=== PATIENT | female | born 1960 | race Caucasian/White ===

== ENCOUNTER 2019-09-04 18:00 | Emergency (ER) | payer OTHER ==
[~2019-09-04] VITALS: Ht 165.1 cm; Wt 45.4 kg
[2019-09-04 18:00] VITALS: BP_SYST 137
--- NOTE | 2019-09-04 18:05 | NUR ---
Patient to ER bed 6 to gown for evaluation. Side rails up. Report given to SAMARA OLIVER.
[2019-09-04] MEDS ORDERED: NITROGLYCERIN 1 INCH (GM) OINT. TP ONE (18:19)
[2019-09-04] MEDS ORDERED: MORPHINE 4 MG/ML INJ. SYRINGE IVP ONE (18:19)
--- NOTE | 2019-09-04 18:20 | NUR ---
ER Dr. Singh at bedside examining patient.
--- NOTE | 2019-09-04 18:21 | NUR ---
Patient presents to ER C/O Chest pain and back pain. Patient A&Ox4,BIB BLS to ER, afebrile, skin pink & warm, pain 6/10, denies N/V/D. Patient placed on pulse-ox and monitoring and evaluation advisor upon arriva, EKG completed upon arrivall. Patient states chest pain X1 week and back pain X6 weeks PT states she has Hx of adult onset scoliosis.
[2019-09-04 18:43] LABS: BASOPHILS # (AUTO) 0.1 K/uL (0.0-0.2); BASOPHILS % (AUTO) 0.7 % (0.0-2.0); EOSINOPHILS % (AUTO) 0.4 % (0.0-4.0); HEMATOCRIT 37.1 % (36-48); HEMOGLOBIN 12.2 g/dL (12.0-16.0); LYMPHOCYTES % (AUTO) 13.7 % (20.5-51.5); MEAN CORPUSCULAR HEMOGLOBIN 30 pg (27-31); MEAN CORPUSCULAR HGB CONC 33 % (32-36); MEAN CORPUSCULAR VOLUME 90 fL (79.0-98.0); MONOCYTES # (AUTO) 0.7 K/uL (0.0-1.0); MONOCYTES % (AUTO) 9.5 % (1.7-9.3); NEUTROPHILS # (AUTO) 5.6 K/uL (1.8-7.7); NEUTROPHILS % (AUTO) 75.7 % (40.0-70.0); PLATELET COUNT (AUTO) 537 K/uL (130-430); RED BLOOD CELL COUNT(AUTO) 4.13 MIL/uL (4.2-6.2); RED CELL DISTRIBUTION WIDTH 13.5 % (9.0-15.0); WHITE BLOOD COUNT (AUTO) 7.5 K/uL (4.8-10.8)
[2019-09-04 18:56] LABS: CREATININE 0.6 mg/dL (0.55-1.30)
[2019-09-04 19:02] LABS: ALBUMIN 2.3 g/dL (3.4-4.8); TOTAL BILIRUBIN 0.4 mg/dL (0.0-1.0)
--- NOTE | 2019-09-04 19:20 | NUR ---
REPORT TO VICTORINA OLIVER
--- NOTE | 2019-09-04 20:00 | NUR ---
VSS no s/s of acute distress Resting on gurney rails up
--- NOTE | 2019-09-04 20:40 | NUR ---
CTA consent obtained, Radiology aware
--- NOTE | 2019-09-04 20:59 | NUR ---
US / Radiology bedside, well tolerated
--- NOTE | 2019-09-04 22:00 | NUR ---
Pt taken to Radiology in stable condition
[2019-09-04] MEDS ORDERED: IOHEXOL 350 mgI/mL, 150 ML INFUS..BTL IV ONE (22:06)
--- NOTE | 2019-09-04 22:20 | NUR ---
Pt back from Radiology, well tolerated
[2019-09-04] MEDS ORDERED: fentaNYL CITRATE/PF 100 MCG/2 ML AMP IVP ONE (23:00)
--- NOTE | 2019-09-04 23:15 | NUR ---
VSS no s/s of acute distress Resting on gurney rails up
[2019-09-05 00:45] VITALS: BP_SYST 126
--- NOTE | 2019-09-05 00:45 | NUR ---
Patient to be transferred to [facility] [place] . Is being transferred due to higher level of care. Receiving facility has accepting physician and available space. ER physician has signed transfer form. Patient or responsible green party has agreed to transfer and signed form. Patient belongings inventoried and will be sent with patient. Copy of nursing notes, lab reports, EKG, Physicians Orders and X-rays to be sent with patient. Report called to at receiving facility. Receiving physician is Dr. Jiménez. [facility] ambulance service has been called for transfer.
== END 2019-09-05 00:45 | disposition short-term general hospital (02) ==
LOC: SED 18:00
DX: R07.2 Precordial pain (principal); M54.32 Sciatica, left side; Z87.891 Personal history of nicotine dependence
CPT/HCPCS: 36415; 71045; 71275; 80053; 83880; 84484; 85025; 85379; 93005; 93970; 96374; 96375; 99285; J2270; J3010; Q9967

== ENCOUNTER 2019-10-17 00:27 | Emergency (ER) | payer OTHER ==
[~2019-10-17] VITALS: Ht 165.1 cm; Wt 47.6 kg
[2019-10-17 00:27] VITALS: BP_SYST 142
[2019-10-17 00:59] VITALS: BP_SYST 153
== END 2019-10-17 00:59 | disposition home or self-care (01) ==
LOC: SED 00:27
DX: T82.594A Other mechanical complication of infusion catheter, initial encounter (principal); M86.9 Osteomyelitis, unspecified; I10 Essential (primary) hypertension
CPT/HCPCS: 99283

== ENCOUNTER 2020-02-25 13:59 | Emergency (ER) | payer MEDICAID, OTHER ==
[~2020-02-25] VITALS: Ht 157.5 cm; Wt 48.5 kg
[2020-02-25 14:15] VITALS: BP_SYST 131
[2020-02-25] MEDS ORDERED: KETOROLAC TROMETHAMINE 60 MG/2 ML VIAL IM ONE (14:30)
[2020-02-25 15:21] VITALS: BP_SYST 131
== END 2020-02-25 15:21 | disposition home or self-care (01) ==
LOC: SED 13:59
DX: S33.5XXA Sprain of ligaments of lumbar spine, initial encounter (principal); W01.0XXA Fall on same level from slipping, tripping and stumbling without subsequent striking against object, initial encounter; Y93.89 Activity, other specified; Y92.89 Other specified places as the place of occurrence of the external cause; Y99.8 Other external cause status
CPT/HCPCS: 96372; 99283; J1885